=== PATIENT | male | born 1950 | race Caucasian/White ===

== ENCOUNTER → 2017-11-04 07:26 | Outpatient (CLI) | payer MEDICARE | END | disposition home or self-care (01) | LOC: D.MRI 07:26 | DX: K86.2 Cyst of pancreas (principal) ==

== ENCOUNTER 2017-12-25 12:10 | Inpatient (IN) | payer MEDICARE ==
[~2017-12-25] VITALS: Ht 175.3 cm; Wt 77.3 kg
--- NOTE | ~2017-12-25 | MORECARE ---
CASE MANAGEMENT DISCHARGE SUMMARY PATIENT: JAIME ODONNELL JR UNIT: [id number] ADM DATE: 12/25/17 AGE: 67 : 49 SEX: M ROOM/BED: D.2134 AUTHOR: AVTARDOC PHYSICIAN: REFERRING PHYSICIAN: NOE BRAXTON MD DATE OF SERVICE: 01/03/18 Discharge Plan Patient Name: JAIME ODONNELL Facility: [facility]:[place] : 1950 Planned Disposition: Home Anticipated Discharge Date: 01/01/18 Discharge Date: 01/01/2018 Expected LOS: 7 Initial Reviewer: [email or web address] Initial Review Date: 12/25/2017 Generated: 01/03/18 10:39 am Comments DCP- Discharge Planning Updated by [email or web address]: Loki Brown on 12/31/17 3:[address] Patient Name: JAIME ODONNELL Encounter No: [id number] : 1950 Primary Insurance: [employer] MED[employer]ARE ADV Anticipated DC Date: 12-31-2017 Planned Disposition: Home DCP follow-up note: CM MET WITH PT IN ROOM TO DISCUSS DISCHARGE NEEDS AND PLANNING. CM DISCUSSED AVAILABILITY OF HOME HEALTH, REHAB SERVICES AND MEDICAL EQUIPMENT. PT DENIES DISCHARGE NEEDS. BROTHER TO TRANSPORT HOME AT DISCHARGE. IMPORTANT MESSAGE FROM MEDICARE PROVIDED AND EXPLAINED. CLARE Kauffman DCP- Discharge Planning Updated by [email or web address]: Sahara Moon on 12/25/17 2:[address] Patient Name: JAIME ODONNELL Admission Status: ER Accout number: [id number] Admission Date: 12-25-2017 : 1950 Admission Diagnosis: Attending: NOE BRAXTON Current LOS: 1 Anticipated DC Date: 12-27-2017 Planned Disposition: Home Primary Insurance: [employer] MEDICARE ADV Discharge Planning Comments: CM met with patient to complete initial dc planning assessment. CM educated patient on the CM role and verbal consent given by patient to complete assessment. Patient lives at home alone. He reports he is independent in his care at home. At discharge patient plans to return home alone and feels this is a safe discharge. Patient denied known discharge needs at this time. CM will continue to follow and will assist as needed with dc plans/needs. See below for more assessment information. CM spoke to Margoth NICOLAS @ [facility] who reported patient had lab on 10/08/17 BUN 21 and CR 1.26, K 4.5 and on 07/09/17 BUN 30, CR 1.2. Supervisor Paint: Sahara Moon RN, [facility] DCPIA - Discharge Planning Initial Assessment Updated by [email or web address]: Sahara Moon on 12/25/17 3:20 pm * Is the patient Alert and Oriented? Yes * How many steps to enter\exit or inside your home? * PCP Dr. Huang * Pharmacy [facility] in [place] * Preadmission Environment Home Alone * ADLs Independent * Equipment None * List name and contact numbers for known caregivers / representatives who currently or will assist patient after discharge: Cisco Mart - friend - [phone] Monroe Odonnell - Brother - [phone] * Verbal permission to speak to the caregivers and representatives has been obtained from the patient. Yes * Community resources currently utilized None * Additional services required to return to the preadmission environment? No * Can the patient safely return to the preadmission environment? Yes * Has this patient been hospitalized within the prior 30 days at any hospital? 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
--- NOTE | ~2017-12-25 | MORECARE ---
CASE MANAGEMENT DISCHARGE SUMMARY PATIENT: JAIME ODONNELL JR UNIT: [id number] ADM DATE: 12/25/17 AGE: 67 : 49 SEX: M ROOM/BED: D.2134 AUTHOR: AVTAR,DOC PHYSICIAN: REFERRING PHYSICIAN: NOE BRAXTON MD DATE OF SERVICE: 12/31/17 Discharge Plan Patient Name: JAIME ODONNELL Facility: [facility]:[place] : 1950 Planned Disposition: Home Anticipated Discharge Date: 12/31/17 Discharge Date: Expected LOS: 6 Initial Reviewer: [email or web address] Initial Review Date: 12/25/2017 Generated: 12/31/17 5:54 pm Comments DCP- Discharge Planning Updated by [email or web address]: Loki Brown on 12/31/17 3:[address] Patient Name: JAIME ODONNELL Encounter No: [id number] : 1950 Primary Insurance: [employer] MEDICARE ADV Anticipated DC Date: 12-31-2017 Planned Disposition: Home DCP follow-up note: CM MET WITH PT IN ROOM TO DISCUSS DISCHARGE NEEDS AND PLANNING. CM DISCUSSED AVAILABILITY OF HOME HEALTH, REHAB SERVICES AND MEDICAL EQUIPMENT. PT DENIES DISCHARGE NEEDS. BROTHER TO TRANSPORT HOME AT DISCHARGE. IMPORTANT MESSAGE FROM MEDICARE PROVIDED AND EXPLAINED. CLARE Kauffman DCP- Discharge Planning Updated by [email or web address]: Sahara Moon on 12/25/17 2:[address] Patient Name: JAIME ODONNELL Admission Status: ER Accout number: [id number] Admission Date: 12-25-2017 : 1950 Admission Diagnosis: Attending: NOE BRAXTON Current LOS: 1 Anticipated DC Date: 12-27-2017 Planned Disposition: Home Primary Insurance: [employer] MEDICARE ADV Discharge Planning Comments: CM met with patient to complete initial dc planning assessment. CM educated patient on the CM role and verbal consent given by patient to complete assessment. Patient lives at home alone. He reports he is independent in his care at home. At discharge patient plans to return home alone and feels this is a safe discharge. Patient denied known discharge needs at this time. CM will continue to follow and will assist as needed with dc plans/needs. See below for more assessment information. CM spoke to Margoth NICOLAS @ [facility] who reported patient had lab on 10/08/17 BUN 21 and CR 1.26, K 4.5 and on 07/09/17 BUN 30, CR 1.2. Form Coverer: Sahara Moon RN, [facility] DCPIA - Discharge Planning Initial Assessment Updated by [email or web address]: Sahara Moon on 12/25/17 3:20 pm * Is the patient Alert and Oriented? Yes * How many steps to enter\exit or inside your home? * PCP Dr. Huang * Pharmacy [facility] in [place] * Preadmission Environment Home Alone * ADLs Independent * Equipment None * List name and contact numbers for known caregivers / representatives who currently or will assist patient after discharge: Cisco Mart - friend - [phone] Monroe Odonnell - Brother - [phone] * Verbal permission to speak to the caregivers and representatives has been obtained from the patient. Yes * Community resources currently utilized None * Additional services required to return to the preadmission environment? No * Can the patient safely return to the preadmission environment? Yes * Has this patient been hospitalized within the prior 30 days at any hospital? 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
--- NOTE | ~2017-12-25 | OP ---
PATIENT NAME: JAIME ODONNELL JR MEDICAL RECORD: [id number] :[birth year] LOCATION:D.M2 D.2134 ADMISSION DATE:12/25/17 SURGEON: LÁZARO MCKEON MD DATE OF OPERATION: 12/30/2017 SURGEON: Lázaro Mckeon MD ANESTHESIA: General anesthesia by Sandro Virgen CRNA. DIAGNOSES: Urinary retention due to obstructive BPH, acute renal failure. PROCEDURES: Cystoscopy, transurethral resection of the prostate using the button electrode. FINDINGS: Obstructive bladder neck and median lobe. Lateral lobes are not obstructive. There are single ureteral orifices in the bladder. The bladder was heavily trabeculated with cellules and diverticula. No bladder tumors were seen. On the left lateral lobe of the prostate, an abscess was unroofed. BLOOD LOSS: None. CLINICAL HISTORY: This is a 67-year-old male, who came to the Emergency Room with acute weakness. He was found on blood work to have acute renal failure with a BUN of 140 and a creatinine of 13.3. With some difficulty, I managed to place a Mcintosh catheter into the patient. He had over 2 liters of drainage. His creatinine has steadily come down until it has stabilized at 1.5. In September of this year, his baseline creatinine was normal. I plan to send him home with an indwelling Mcintosh catheter and then do a TURP at a later date. However, the patient requested that the TURP be done now while he is in the hospital. He is not allergic to any medications. We gave him Ancef balloon design printer to the OR. DESCRIPTION OF PROCEDURE: The patient was given induction of general anesthesia. He was then placed in the dorsal lithotomy position and prepped and draped. The resectoscope sheath was placed in with the visual obturator. No urethral strictures were seen. The prostatic urethra shows no obstruction by the lateral lobes. However, the bladder neck is extremely tall and obstructive. This was confirmed by going in the bladder, which is heavily trabeculated showing signs of chronic obstruction. No bladder tumors were seen. There are single ureteral orifices located some distance away from the bladder neck. We placed the button electrode in. Using normal saline as irrigation, we started reducing the bladder neck. Some of the lateral lobes adjacent to the bladder neck were also taken down. While we were working on the left lateral lobe, we encountered pus, which was unroofed. He has some small prostatic abscesses in the left lateral lobe. No abscesses were seen in the right lateral lobe. At the end of the procedure, the anterior fibromuscular stroma was also smoothed out using the button electrode to remove any ragged tissue. There was a slight bit of bleeding from the anterior fibromuscular stroma, which was treated with the coagulation setting. Otherwise, the entire procedure was bloodless. At the end of the procedure, a nice wide open channel was made. We did not go anywhere near the verumontanum during the resection. It is intact. Scope was then removed and a 24-Romansh 3-way Mcintosh catheter was inserted and continuous bladder irrigation with normal saline was started. If the irrigation is clear tomorrow, we will probably take the catheter out for a voiding trial. TRANSINT:[id number] Voice Confirmation ID: [id number] DOCUMENT ID: [id number] OPERATIVE REPORT [id number] JAIEM ODONNELL JR, LÁZARO Siu MD at 0929 CC: [id number] DICTATION DATE: 12/30/171827 LEAD CASE MANAGER: 12/30/17 224 ADM IN [facility] [address] [place] [address]
--- NOTE | ~2017-12-25 | MORECARE ---
CASE MANAGEMENT DISCHARGE SUMMARY PATIENT: JAIME ODONNELL UNIT: [id number] ADM DATE: 12/25/17 AGE: 67 : 49 SEX: M ROOM/BED: D.8744 AUTHOR: AVTAR,DOC PHYSICIAN: REFERRING PHYSICIAN: NOE BRAXTON MD DATE OF SERVICE: 12/25/17 Discharge Plan Patient Name: JIAME ODONNELL Facility: [facility]:[place] : 1950 Planned Disposition: Home Anticipated Discharge Date: 12/27/17 Discharge Date: Expected LOS: 2 Initial Reviewer: [email or web address] Initial Review Date: 12/25/2017 Generated: 12/25/17 4:23 pm DCP- Discharge Planning Updated by [email or web address]: Sahara Moon on 12/25/17 2:[address] Patient Name: JAIME ODONNELL Admission Status: ER Accout number: [id number] Admission Date: 12-25-2017 : 1950 Admission Diagnosis: Attending: NOE BRAXTON Current LOS: 1 Anticipated DC Date: 12-27-2017 Planned Disposition: Home Primary Insurance: [employer] MEDIC[employer] ADV Discharge Planning Comments: CM met with patient to complete initial dc planning assessment. CM educated patient on the CM role and verbal consent given by patient to complete assessment. Patient lives at home alone. He reports he is independent in his care at home. At discharge patient plans to return home alone and feels this is a safe discharge. Patient denied known discharge needs at this time. CM will continue to follow and will assist as needed with dc plans/needs. See below for more assessment information. CM spoke to Margoth VALENZUELA @ [facility] who reported patient had lab on 10/08/17 BUN 21 and CR 1.26, K 4.5 and on 07/09/17 BUN 30, CR 1.2. Mailing Manager: Sahara Moon RN, [facility] DCPIA - Discharge Planning Initial Assessment Updated by [email or web address]: Sahara Moon on 12/25/17 3:20 pm * Is the patient Alert and Oriented? Yes * How many steps to enter\exit or inside your home? * PCP Dr. Huang * Pharmacy [facility] in [place] * Preadmission Environment Home Alone * ADLs Independent * Equipment None * List name and contact numbers for known caregivers / representatives who currently or will assist patient after discharge: Cisco Mart - friend - [phone] Monroe Odonnell - Brother - [phone] * Verbal permission to speak to the caregivers and representatives has been obtained from the patient. Yes * Community resources currently utilized None * Additional services required to return to the preadmission environment? No * Can the patient safely return to the preadmission environment? Yes * Has this patient been hospitalized within the prior 30 days at any hospital? No Patient Name: JAIME ODONNELL Page [phone] at 1524 All edits/amendments must be made on the electronic document DICTATION DATE: 12/25/171522 SEARCH PLANNER: DOMINIC 12/25/171522 RPT#: [id number] DC DATE: STATUS: ADM IN [facility] [address] [place] [address] END OF REPORT
[2017-12-25] MEDS ORDERED: LOSARTAN-HCTZ1 EAC2 PO (12:19)
[2017-12-25] MEDS ORDERED: MOBIC7.5 MG PO (12:19)
[2017-12-25] MEDS ORDERED: PROSCAR5 MG PO (12:19)
[2017-12-25] MEDS ORDERED: ZOLOFT100 MG PO (12:20)
[2017-12-25] MEDS ORDERED: METOPROLOL TART50 MG PO (12:21)
[2017-12-25] MEDS ORDERED: LEVOFLOXACIN500 MG PO (12:22)
[2017-12-25 13:04] LABS: BASOPHILS 0.2 % (0-2); EOSINOPHILS 1.1 % (0-7); HEMATOCRIT 32.4 % (42.0-54.0); IMMATURE GRANULOCYTES 0.4 % (0-5); LYMPHOCYTES 4.5 % (15-50); MCH 29.3 pg (26.0-34.0); MCV 86.2 fL (80.0-100.0); MEAN PLATELET VOLUME 8.8 fL (7.4-10.4); MONOCYTES 5.5 % (2-11); NEUTROPHILS 88.3 % (40-80); PLATELET COUNT 166 10x3/uL (130-400); RBC 3.76 10x6/uL (4.20-6.10); WBC 12.3 10x3/uL (4.8-10.8)
[2017-12-25 13:08] LABS: APPEARANCE CLEAR (CLEAR); BILIRUBIN NEGATIVE (NEGATIVE); COLOR YELLOW (YELLOW); GLUCOSE NEGATIVE (NEGATIVE); KETONE NEGATIVE (NEGATIVE); NITRITE NEGATIVE (NEGATIVE); PROTEIN NEGATIVE (NEGATIVE); SPECIFIC GRAVITY 1.015 (1.005-1.020); UROBILINOGEN NORMAL (NORMAL)
[2017-12-25 13:18] LABS: ALBUMIN 2.8 g/dL (3.4-5.0); ANION GAP 24.7 mmol/L (8-16); BILIRUBIN - TOTAL 0.54 mg/dL (0.2-1.3); CALCIUM 8.4 mg/dL (8.5-10.1); CARBON DIOXIDE 15.3 mmol/L (21.0-32.0); CREATININE - SERUM 13.3 mg/dL (0.6-1.3)
[2017-12-25 15:10] VITALS: BP 88/58
[2017-12-25 15:30] VITALS: BP 91/52
[2017-12-25 16:18] LABS: ANION GAP 25.7 mmol/L (8-16); CALCIUM 8.6 mg/dL (8.5-10.1); CREATININE - SERUM 13.1 mg/dL (0.6-1.3); POTASSIUM - SERUM 5.7 mmol/L (3.5-5.1)
[2017-12-25 17:02] LABS: % SATURATION 26 % (15-55); IRON 53 ug/dl (35-150); TOTAL IRON BIND CAPACITY 197 ug/dl (260-445); UNSAT IRON BIND CAPACITY 144 ug/dl (150-375)
[2017-12-25 17:19] VITALS: BP 176/80
[2017-12-25 18:02] VITALS: BP 176/80; BMI 30.9
[2017-12-25 20:00] VITALS: BP 156/82
[2017-12-26 00:06] VITALS: BP 175/79
[2017-12-26 04:00] VITALS: BP 162/73
[2017-12-26 07:19] LABS: HEMATOCRIT 31.5 % (42.0-54.0); HEMOGLOBIN 10.8 g/dL (13.5-17.5); MCH 29.1 pg (26.0-34.0); MCHC 34.3 g/dL (31.0-37.0); MCV 84.9 fL (80.0-100.0); MEAN PLATELET VOLUME 8.9 fL (7.4-10.4); PLATELET COUNT 146 10x3/uL (130-400); RBC 3.71 10x6/uL (4.20-6.10); RDW 14.1 % (11.5-14.5); WBC 20.2 10x3/uL (4.8-10.8)
[2017-12-26 08:08] LABS: CALCIUM 8.2 mg/dL (8.5-10.1); MAGNESIUM - SERUM 1.4 mg/dL (1.8-2.4); PHOSPHOROUS 4.9 mg/dL (2.5-4.9)
[2017-12-26 08:10] LABS: ANION GAP 17.9 mmol/L (8-16); CARBON DIOXIDE 20.3 mmol/L (21.0-32.0); CREATININE - SERUM 5.8 mg/dL (0.6-1.3); POTASSIUM - SERUM 4.2 mmol/L (3.5-5.1)
[2017-12-26 08:20] LABS: MONOCYTES 1 % (2-11); NEUTROPHILS 98 % (40-80)
[2017-12-26 08:21] LABS: PLATELET ESTIMATE DECREASED
[2017-12-26 08:44] VITALS: BP 142/81
[2017-12-26 12:09] VITALS: BP 138/77
[2017-12-26 20:30] VITALS: BP 157/69
[2017-12-27 00:30] VITALS: BP 151/70
[2017-12-27 04:30] VITALS: BP 142/64
[2017-12-27 06:50] LABS: BASOPHILS 0.1 % (0-2); EOSINOPHILS 2.2 % (0-7); HEMATOCRIT 30.5 % (42.0-54.0); HEMOGLOBIN 10.3 g/dL (13.5-17.5); IMMATURE GRANULOCYTES 0.3 % (0-5); LYMPHOCYTES 5.1 % (15-50); MCH 29.1 pg (26.0-34.0); MCHC 33.8 g/dL (31.0-37.0); MCV 86.2 fL (80.0-100.0); MEAN PLATELET VOLUME 8.8 fL (7.4-10.4); MONOCYTES 4.9 % (2-11); NEUTROPHILS 87.4 % (40-80); PLATELET COUNT 118 10x3/uL (130-400); RBC 3.54 10x6/uL (4.20-6.10)
[2017-12-27 06:51] LABS: WBC 12.9 10x3/uL (4.8-10.8)
[2017-12-27 07:05] LABS: ANION GAP 11.7 mmol/L (8-16); CARBON DIOXIDE 29.8 mmol/L (21.0-32.0); CREATININE - SERUM 2.6 mg/dL (0.6-1.3); POTASSIUM - SERUM 3.5 mmol/L (3.5-5.1)
[2017-12-27 10:12] VITALS: BP 159/83
[2017-12-27 11:00] VITALS: BP 161/82
[2017-12-27 15:00] VITALS: BP 153/80
[2017-12-27 20:00] VITALS: BP 157/85
[2017-12-28 05:52] LABS: BASOPHILS 0.1 % (0-2); EOSINOPHILS 2.4 % (0-7); HEMATOCRIT 31.7 % (42.0-54.0); HEMOGLOBIN 10.8 g/dL (13.5-17.5); IMMATURE GRANULOCYTES 0.4 % (0-5); LYMPHOCYTES 3.2 % (15-50); MCH 29.4 pg (26.0-34.0); MCHC 34.1 g/dL (31.0-37.0); MCV 86.4 fL (80.0-100.0); MONOCYTES 3.4 % (2-11); NEUTROPHILS 90.5 % (40-80); PLATELET COUNT 139 10x3/uL (130-400); RBC 3.67 10x6/uL (4.20-6.10); RDW 13.9 % (11.5-14.5)
[2017-12-28 06:02] LABS: WBC 16.4 10x3/uL (4.8-10.8)
[2017-12-28 06:39] LABS: ANION GAP 14.2 mmol/L (8-16); CALCIUM 7.5 mg/dL (8.5-10.1); CARBON DIOXIDE 28.2 mmol/L (21.0-32.0); POTASSIUM - SERUM 3.4 mmol/L (3.5-5.1)
[2017-12-28 06:42] LABS: CREATININE - SERUM 1.7 mg/dL (0.6-1.3)
[2017-12-28 06:59] VITALS: BP 140/76
[2017-12-28 07:57] LABS: MAGNESIUM - SERUM 1.1 mg/dL (1.8-2.4)
[2017-12-28 07:58] LABS: PHOSPHOROUS 3.5 mg/dL (2.5-4.9)
[2017-12-28 08:20] LABS: FOLATE (FOLIC ACID) - SERUM 9.1 ng/mL (>3.0)
[2017-12-28 08:36] VITALS: BP 142/80
[2017-12-28 12:16] VITALS: BP 135/69
[2017-12-28 21:09] VITALS: BP 150/75
[2017-12-29 01:23] VITALS: BP 153/78
[2017-12-29 06:15] VITALS: BP 155/81
[2017-12-29 08:04] LABS: BASOPHILS 0.1 % (0-2); EOSINOPHILS 3.4 % (0-7); HEMATOCRIT 33.7 % (42.0-54.0); HEMOGLOBIN 11.5 g/dL (13.5-17.5); IMMATURE GRANULOCYTES 0.3 % (0-5); LYMPHOCYTES 6.4 % (15-50); MCH 29.5 pg (26.0-34.0); MCHC 34.1 g/dL (31.0-37.0); MCV 86.4 fL (80.0-100.0); MEAN PLATELET VOLUME 9.3 fL (7.4-10.4); MONOCYTES 6.2 % (2-11); NEUTROPHILS 83.6 % (40-80); PLATELET COUNT 129 10x3/uL (130-400); RDW 14.2 % (11.5-14.5); WBC 15.2 10x3/uL (4.8-10.8)
[2017-12-29 08:17] VITALS: BP 156/87
[2017-12-29 08:17] LABS: ANION GAP 12.9 mmol/L (8-16); CARBON DIOXIDE 29.6 mmol/L (21.0-32.0); CREATININE - SERUM 1.5 mg/dL (0.6-1.3); MAGNESIUM - SERUM 1.3 mg/dL (1.8-2.4); PHOSPHOROUS 2.7 mg/dL (2.5-4.9); POTASSIUM - SERUM 3.5 mmol/L (3.5-5.1)
[2017-12-29 13:00] VITALS: BP 143/85
[2017-12-29 20:00] VITALS: BP 131/77
[2017-12-30 04:00] VITALS: BP 147/74
[2017-12-30 05:33] LABS: BASOPHILS 0.1 % (0-2); EOSINOPHILS 3.7 % (0-7); HEMATOCRIT 32.3 % (42.0-54.0); HEMOGLOBIN 11.1 g/dL (13.5-17.5); IMMATURE GRANULOCYTES 0.3 % (0-5); MCH 29.3 pg (26.0-34.0); MCHC 34.4 g/dL (31.0-37.0); MCV 85.2 fL (80.0-100.0); MEAN PLATELET VOLUME 9.2 fL (7.4-10.4); MONOCYTES 5.7 % (2-11); NEUTROPHILS 84.2 % (40-80); PLATELET COUNT 145 10x3/uL (130-400); RBC 3.79 10x6/uL (4.20-6.10); RDW 13.9 % (11.5-14.5); WBC 12.6 10x3/uL (4.8-10.8)
[2017-12-30 05:58] LABS: CALCIUM 8.1 mg/dL (8.5-10.1); CARBON DIOXIDE 30.2 mmol/L (21.0-32.0); CREATININE - SERUM 1.5 mg/dL (0.6-1.3); MAGNESIUM - SERUM 1.3 mg/dL (1.8-2.4); PHOSPHOROUS 3.2 mg/dL (2.5-4.9); POTASSIUM - SERUM 3.2 mmol/L (3.5-5.1)
[2017-12-30 08:16] VITALS: BP 130/84
[2017-12-30 11:37] VITALS: BP 129/80
[2017-12-30 11:56] LABS: MAGNESIUM - SERUM 1.5 mg/dL (1.8-2.4); POTASSIUM - SERUM 3.6 mmol/L (3.5-5.1)
[2017-12-30 14:27] VITALS: Ht 175.3 cm; Wt 77.3 kg
[2017-12-30 15:30] VITALS: BP 150/84
[2017-12-30 19:45] VITALS: BP 152/78
[2017-12-30 20:00] VITALS: BP 161/74
[2017-12-31] VITALS: BP 135/75
[2017-12-31 04:00] VITALS: BP 127/60
[2017-12-31 05:15] LABS: BASOPHILS 0.1 % (0-2); EOSINOPHILS 0.5 % (0-7); HEMATOCRIT 30.5 % (42.0-54.0); HEMOGLOBIN 10.2 g/dL (13.5-17.5); IMMATURE GRANULOCYTES 0.3 % (0-5); LYMPHOCYTES 4.3 % (15-50); MCH 28.8 pg (26.0-34.0); MCHC 33.4 g/dL (31.0-37.0); MCV 86.2 fL (80.0-100.0); MEAN PLATELET VOLUME 8.9 fL (7.4-10.4); MONOCYTES 5.7 % (2-11); NEUTROPHILS 89.1 % (40-80); PLATELET COUNT 143 10x3/uL (130-400); RBC 3.54 10x6/uL (4.20-6.10); RDW 13.9 % (11.5-14.5); WBC 14.7 10x3/uL (4.8-10.8)
[2017-12-31 05:40] LABS: ANION GAP 12.7 mmol/L (8-16); CARBON DIOXIDE 27.6 mmol/L (21.0-32.0); CREATININE - SERUM 1.5 mg/dL (0.6-1.3); MAGNESIUM - SERUM 1.6 mg/dL (1.8-2.4); PHOSPHOROUS 3.4 mg/dL (2.5-4.9)
[2017-12-31 05:41] LABS: POTASSIUM - SERUM 4.3 mmol/L (3.5-5.1)
[2017-12-31 08:05] VITALS: BP 142/86
[2017-12-31 11:52] VITALS: BP 135/69
[2017-12-31 14:21] VITALS: BP 148/62
[2017-12-31 21:08] VITALS: BP 146/84
[2018-01-01] VITALS: BP 123/63
[2018-01-01 04:00] VITALS: BP 141/80
[2018-01-01 06:33] LABS: BASOPHILS 0.1 % (0-2); EOSINOPHILS 2.8 % (0-7); HEMATOCRIT 31.9 % (42.0-54.0); HEMOGLOBIN 10.8 g/dL (13.5-17.5); IMMATURE GRANULOCYTES 0.4 % (0-5); LYMPHOCYTES 7.7 % (15-50); MCH 29.1 pg (26.0-34.0); MCHC 33.9 g/dL (31.0-37.0); MEAN PLATELET VOLUME 8.9 fL (7.4-10.4); MONOCYTES 8.1 % (2-11); NEUTROPHILS 80.9 % (40-80); PLATELET COUNT 159 10x3/uL (130-400); RBC 3.71 10x6/uL (4.20-6.10); RDW 14.1 % (11.5-14.5); WBC 15.9 10x3/uL (4.8-10.8)
[2018-01-01 07:09] LABS: ALBUMIN 2.5 g/dL (3.4-5.0); ANION GAP 10.1 mmol/L (8-16); BILIRUBIN - TOTAL 0.91 mg/dL (0.2-1.3); CARBON DIOXIDE 30.7 mmol/L (21.0-32.0); MAGNESIUM - SERUM 1.7 mg/dL (1.8-2.4); PHOSPHOROUS 3.8 mg/dL (2.5-4.9); POTASSIUM - SERUM 3.8 mmol/L (3.5-5.1)
[2018-01-01 07:11] LABS: CREATININE - SERUM 1.9 mg/dL (0.6-1.3)
[2018-01-01 08:34] VITALS: BP 132/74
== END 2018-01-01 11:00 | disposition home or self-care (01) | DRG 665 ==
LOC: D.ER 12:10 → D.M2 14:11
PROVIDERS: Emergency Medicine; Family Medicine; Internal Medicine Nephrology; Urology
PROC: 0VT08ZZ Resection of Prostate, Via Natural or Artificial Opening Endoscopic (ICD-10-PCS; principal; 2017-12-30 13:30)
PROC: 0TJB8ZZ Inspection of Bladder, Via Natural or Artificial Opening Endoscopic (ICD-10-PCS; 2017-12-30 13:30)
DX: N17.9 Acute kidney failure, unspecified (principal); J18.9 Pneumonia, unspecified organism; N13.8 Other obstructive and reflux uropathy; N40.1 Benign prostatic hyperplasia with lower urinary tract symptoms; R33.8 Other retention of urine; R35.0 Frequency of micturition; I11.0 Hypertensive heart disease with heart failure; I50.9 Heart failure, unspecified; F32.9 Major depressive disorder, single episode, unspecified; D64.9 Anemia, unspecified; E87.5 Hyperkalemia; N13.2 Hydronephrosis with renal and ureteral calculous obstruction

== ENCOUNTER 2018-01-23 13:17 | Emergency (ER) | payer MEDICARE | END 2018-01-23 15:50 | disposition home or self-care (01) | LOC: D.ER 13:17 | DX: S39.012A Strain of muscle, fascia and tendon of lower back, initial encounter (principal); X50.1XXA Overexertion from prolonged static or awkward postures, initial encounter; Y93.89 Activity, other specified; Y92.019 Unspecified place in single-family (private) house as the place of occurrence of the external cause; I11.0 Hypertensive heart disease with heart failure; I50.9 Heart failure, unspecified ==

== ENCOUNTER → 2018-03-10 15:40 | Outpatient (CLI) | payer MEDICARE ==
[2018-01-23 13:21] VITALS: BMI 27.8
[~2018-03-10 15:40] MED LIST: BACLOFEN20 M1 PO; LEVOFLOXACIN500 MG PO; LOSARTAN-HCTZ1 EAC2 PO; METOPROLOL TART50 MG PO; MOBIC7.5 MG PO; PROSCAR5 MG PO; VOLTAREN75 MG PO; ZOLOFT100 MG PO
== END | disposition home or self-care (01) ==
LOC: D.MRI 15:40
DX: M54.5 Low back pain (principal)

== ENCOUNTER → 2018-06-22 18:50 | Outpatient (CLI) | payer MEDICARE ==
[2018-01-23 13:21] VITALS: BMI 27.8
== END | disposition home or self-care (01) ==
LOC: D.LABREF 18:50
PROVIDERS: ATTEND Urology
DX: Z00.00 Encounter for general adult medical examination without abnormal findings (principal)

== ENCOUNTER → 2018-07-20 18:56 | Outpatient (CLI) | payer MEDICARE ==
[2018-01-23 13:21] VITALS: BMI 27.8
== END | disposition home or self-care (01) ==
LOC: D.LABREF 18:56
PROVIDERS: ATTEND Urology
DX: R82.5 Elevated urine levels of drugs, medicaments and biological substances (principal); R31.9 Hematuria, unspecified; D72.829 Elevated white blood cell count, unspecified

== ENCOUNTER 2018-08-11 07:25 | Day surgery (SDC) | payer MEDICARE ==
[2018-08-10 14:14] LABS: HEMATOCRIT 37.9 % (42.0-54.0); HEMOGLOBIN 13.1 g/dL (13.5-17.5); MCH 30.3 pg (26.0-34.0); MCHC 34.6 g/dL (31.0-37.0); MCV 87.5 fL (80.0-100.0); MEAN PLATELET VOLUME 9.2 fL (7.4-10.4); RBC 4.33 10x6/uL (4.20-6.10); RDW 14.2 % (11.5-14.5); WBC 8.3 10x3/uL (4.8-10.8)
[2018-08-10 14:25] LABS: ANION GAP 10.5 mmol/L (8-16); CALCIUM 8.8 mg/dL (8.5-10.1); CARBON DIOXIDE 29.4 mmol/L (21.0-32.0); CREATININE - SERUM 2.1 mg/dL (0.6-1.3); POTASSIUM - SERUM 4.9 mmol/L (3.5-5.1)
[~2018-08-11] VITALS: Ht 175.3 cm; Wt 86.6 kg
[~2018-08-11 07:25] MED LIST changes: +BACTRIM 400-801 TAB PO; +ZANAFLEX4 MG PO
[2018-08-11 08:49] VITALS: BP 138/73; Ht 175.3 cm; Wt 86.6 kg
--- NOTE | 2018-08-11 11:40 | NUR ---
REC'D FROM RR. FAMILY AT BEDSIDE. MENDOSA TO GRAVITY DRAINAGE WITH BLOOD TINGED URINE INN BAG.
--- NOTE | 2018-08-11 11:50 | NUR ---
AYAH ESPAÑACorky SERVED TO PATIENT.
--- NOTE | 2018-08-11 12:16 | OP ---
PATIENT NAME: JAIME ODONNELL JR MEDICAL RECORD: [id number] :[birth year] LOCATION:[facility] ADMISSION DATE: SURGEON: MARLEN MCKEON MD DATE OF OPERATION: 08/11/2018 SURGEON: Marlen Mckeon MD ANESTHESIA: TIVA by Gia Traylor CRNA. 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 Postvoid residual is 279 mL. PROCEDURE: UroLift times 6 units implanted. FINDINGS: Obstructive lateral lobes with no median lobe. Slightly trabeculated bladder without bladder tumors. Single ureteral orifices bilaterally. ESTIMATED BLOOD LOSS: Minimal. CLINICAL HISTORY: This is a 67-year-old male, who had been in urinary retention. He had a TURP on 12/30/2017. At that time, he had a prostatic abscess removed from the left lateral lobe. He continues to have trouble emptying his bladder and he performed self-intermittent catheterization 4 times a day. Because of the ongoing retention and the catheterization, he has recurrent urinary tract infections. The last urine culture grew Enterococcus faecalis sensitive to amoxicillin. I have given him amoxicillin for suppression. He comes to have the UroLift procedure done to clean up any residual obstruction. He is not allergic to any medications. He was given Ancef avionics electrical engineer to the OR. DESCRIPTION OF PROCEDURE: The patient was given IV sedation. He was then placed into the lithotomy position and prepped and draped. The UroLift scope was introduced. We noticed that the lateral lobes are obstructive and quite long. He has a very long prostatic urethra. The bladder neck showed signs of previous resection. There was no median lobe present. In the bladder, there was single ureteral orifices bilaterally with no bladder tumors. There was some moderate trabeculation of the bladder. I started at the verumontanum level and placed one unit on each side at the anterolateral sulcus of the lateral lobe. Then, we went to the bladder neck and one unit was placed on each side, about 1.5 cm distal to the bladder neck at the anterolateral sulcus. Looking in with the obturator, there was still obstruction from prostatic tissue in mid portion of the prostate meeting in the midline. One unit was then placed on each side at the mid urethral level to help open up the anterior urethral channel. This created a nice prostatic anterior urethral channel. The bladder was partly filled and then the scope was removed, this was for a voiding trial. Actually, we inserted a Mcintosh catheter 16-Prydeinig into the bladder and then inflated the balloon with 10 cc of sterile water. I will see him in followup in 2 weeks' time to get the catheter out for a voiding trial. TRANSINT:[id number] Voice Confirmation ID: [id number] DOCUMENT ID: [id number] OPERATIVE REPORT [id number] JAIME ODONNELL JR, MARLEN Siu MD at 1216 CC: [id number] DICTATION DATE: 08/11/18 1139 FISH HATCHERY ASSISTANT: 08/11/18 1155 [address] [place] [address]
--- NOTE | 2018-08-11 12:50 | NUR ---
TOLERATED FL DIET. IV DC'D WITH CATHETER INTACT. WRITTEN AND VERBAL DC INST. GIVEN TO PT ALONG WITH FOLLOW UP APPT, VERBALIZED UNDERSTANDING. MENDOSA CATHETER CHANGED TO LEG BAG.
--- NOTE | 2018-08-11 13:05 | NUR ---
DC'D HOME WITH FAMILY VIA PRIVATE VEHICLE. STABLE AT TIME OF DC.
== END 2018-08-11 13:05 | disposition home or self-care (01) ==
LOC: D.PAN 07:25 → D.OPS 09:00 → D.PAN 09:10
PROVIDERS: Anesthesiology; ATTEND Urology
DX: N40.1 Benign prostatic hyperplasia with lower urinary tract symptoms (principal); N13.8 Other obstructive and reflux uropathy; N32.89 Other specified disorders of bladder; Z01.812 Encounter for preprocedural laboratory examination

== ENCOUNTER → 2018-08-29 12:53 | Outpatient (CLI) | payer MEDICARE ==
[2018-08-11 08:49] VITALS: BMI 28.2
== END | disposition home or self-care (01) ==
LOC: D.LABREF 12:53
PROVIDERS: ATTEND Urology
DX: N39.0 Urinary tract infection, site not specified (principal)